=== PATIENT | female | born 1960 | race Caucasian/White ===

== ENCOUNTER → 2017-05-31 | Outpatient (CLI) | payer BC ==
[2017-05-31 08:39] LABS: Anion Gap 9 mmol/L; Blood Urea Nitrogen 16 mg/dL (7-17); Carbon Dioxide 28 mmol/L (22-30); Chloride 106 mmol/L (98-107); Glucose 100 mg/dL (74-99); Potassium 4.5 mmol/L (3.5-5.1); Sodium 143 mmol/L (137-145)
[2017-05-31 08:40] LABS: ALT 28 U/L (9-52); AST 24 U/L (14-36); Albumin 4.1 g/dL (3.5-5.0); Alkaline Phosphatase 51 U/L (38-126); Calcium 9.8 mg/dL (8.4-10.2); Cholesterol 242 mg/dL (<200); HDL Cholesterol 102 mg/dL (40-60); LDL Cholesterol,Calculated 130 mg/dL (0-99); Total Bilirubin 0.3 mg/dL (0.2-1.3); Total Protein 6.8 g/dL (6.3-8.2); Triglycerides 52 mg/dL (<150)
[2017-05-31 17:15] LABS: Hemoglobin A1C 5.6 % (4.0-6.0)
--- NOTE | 2017-06-01 11:38 | MM ---
Reason for exam: screening (asymptomatic). Last mammogram was performed 1 year and 5 months ago. History: Patient is postmenopausal. Taking estrogen for 3 months. Physical Findings: A clinical breast exam by your physician is recommended on an annual basis and results should be correlated with mammographic findings. MG Screening Mammo w CAD Bilateral CC and MLO view(s) were taken. Prior study comparison: January 13, 2016, bilateral MG screening mammo w CAD. June 30, 2014, bilateral MG screening mammo w CAD. There are scattered fibroglandular densities. No significant changes when compared with prior studies. ASSESSMENT: Negative, BI-RAD 1 RECOMMENDATION: Routine screening mammogram of both breasts in 1 year.
== END | disposition home or self-care (01) ==
LOC: RADMAMWWP 07:14
PROVIDERS: ATTEND Obstetrics & Gynecology
DX: Z12.31 Encounter for screening mammogram for malignant neoplasm of breast (principal); Z78.0 Asymptomatic menopausal state
CPT/HCPCS: 36415; 77067; 80053; 80061; 82306; 83036

== ENCOUNTER → 2018-08-23 | Outpatient (CLI) | payer BC ==
--- NOTE | 2018-08-27 09:37 | MM ---
Reason for exam: screening (asymptomatic). Last mammogram was performed 1 year and 3 months ago. History: Patient is postmenopausal. Taking estrogen for 3 months. Physical Findings: A clinical breast exam by your physician is recommended on an annual basis and results should be correlated with mammographic findings. MG Screening Mammo w CAD Bilateral CC and MLO view(s) were taken. Prior study comparison: May 31, 2017, bilateral MG screening mammo w CAD. January 13, 2016, bilateral MG screening mammo w CAD. Finding: There are stable fine grouped/clustered calcifications in the upper quadrant, middle position of the left breast on MLO view. No significant changes in finding since May 31, 2017 and January 13, 2016. ASSESSMENT: Benign, BI-RAD 2 RECOMMENDATION: Routine screening mammogram of both breasts in 1 year.
== END | disposition home or self-care (01) ==
LOC: RADMAMWWP 14:59
PROVIDERS: ATTEND Obstetrics & Gynecology
DX: Z12.31 Encounter for screening mammogram for malignant neoplasm of breast (principal)
CPT/HCPCS: 77067

== ENCOUNTER → 2018-09-02 | Outpatient (CLI) | payer BC ==
--- NOTE | 2018-09-02 08:08 | US ---
EXAMINATION TYPE: US thyroid st tissue head/neck DATE OF EXAM: 09/02/2018 COMPARISON: NONE CLINICAL HISTORY: 58-year-old female R22.1 Swelling , Mass, Lump In Neck. Doctor felt a lump within n arturo TECHNIQUE: Multiple sonographic images of the thyroid gland are obtained. FINDINGS: GLAND SIZE: Right Lobe: 4.5 x 1.4 x 2.6 cm Overall Parenchyma: heterogenous Left Lobe: 5.1 x 1.6 x 2.3 cm Overall Parenchyma: heterogeneous Isthmus Thickness: 0.2 cm NODULES RIGHT: # of nodules measured on right: 2 1. 0.8 X 0.5 x 0.7 cm hypoechoic solid nodule at the mid pole with well-defined margins. This nodu le is wider than tall and shows no intranodular vascularity. Prior size: no prior exam 2. 0.9 X 0.9 x 0.8 cm isoechoic solid nodule at the lower pole with poorly defined margins. This no dule is taller than wide and shows intranodular vascularity. Prior size: no prior exam LEFT: # of nodules measured on left: 1 1. 0.9 X 0.6 x 0.8 cm hypoechoic solid nodule at the lower pole with well-defined margins. This no dule is wider than tall and shows intranodular vascularity. Prior size: no prior ISTHMUS: # of nodules measured in the isthmus: 0 Bilateral neck scanned, no evidence of lymphadenopathy. IMPRESSION: Borderline thyromegaly. A couple solid nodules on the right measuring up to 9 mm and one solid nodule on the left measuring 9 mm. Follow-up could be considered.
== END | disposition home or self-care (01) ==
LOC: RADUSWWP 06:58
PROVIDERS: ATTEND Family Medicine
DX: E04.1 Nontoxic single thyroid nodule (principal)
CPT/HCPCS: 76536

== ENCOUNTER → 2018-09-04 | Outpatient (CLI) | payer BC ==
[2018-09-04 09:38] LABS: Basophils % (A) 0 %; Eosinophils # (A) 0.2 k/uL (0-0.7); Eosinophils % (A) 4 %; HCT 43.3 % (34.0-46.0); HGB 14.2 gm/dL (11.4-16.0); Lymphocytes # (A) 1.3 k/uL (1.0-4.8); Lymphocytes % (A) 29 %; MCH 30.9 pg (25.0-35.0); MCHC 32.7 g/dL (31.0-37.0); MCV 94.3 fL (80.0-100.0); Mean Platelet Volume 6.5; Monocytes # (A) 0.3 k/uL (0-1.0); Monocytes % (A) 6 %; Neutrophils # (A) 2.6 k/uL (1.3-7.7); Neutrophils % (A) 58 %; Platelet Count 301 k/uL (150-450); RBC 4.59 m/uL (3.80-5.40); RDW 12.8 % (11.5-15.5); WBC 4.5 k/uL (3.8-10.6)
[2018-09-04 09:49] LABS: ALT 28 U/L (9-52); AST 19 U/L (14-36); Albumin 4.2 g/dL (3.5-5.0); Alkaline Phosphatase 59 U/L (38-126); Anion Gap 5 mmol/L; Blood Urea Nitrogen 15 mg/dL (7-17); Calcium 9.5 mg/dL (8.4-10.2); Carbon Dioxide 27 mmol/L (22-30); Chloride 108 mmol/L (98-107); Cholesterol 218 mg/dL (<200); Glucose 90 mg/dL (74-99); HDL Cholesterol 88 mg/dL (40-60); LDL Cholesterol,Calculated 119 mg/dL (0-99); Potassium 4.3 mmol/L (3.5-5.1); Sodium 140 mmol/L (137-145); Total Bilirubin 0.5 mg/dL (0.2-1.3); Total Protein 6.9 g/dL (6.3-8.2); Triglycerides 54 mg/dL (<150); Uric Acid 4.6 mg/dL (3.7-7.4)
[2018-09-04 10:05] LABS: T4, Free (Free Thyroxine) 1.03 ng/dL (0.78-2.19)
--- NOTE | 2018-09-04 14:13 | BD ---
EXAMINATION TYPE: Axial Bone Density DATE OF EXAM: 09/04/2018 COMPARISON: NONE CLINICAL HISTORY: Height: 5 FT 5 1/4 IN Weight: 187 FRAX RISK QUESTIONS: RISK FACTORS HISTORY OF: Family History of Osteoporosis: MOTHER WAS ON FOSAMAX PT NOT SURE IF SHE WAS DIAGNOSED Postmenopausal woman: AGE 56 MEDICATIONS: Additional Medications: NONE Additional History: EXAM MEASUREMENTS: Bone mineral densitometry was performed using the Tapactive System. Bone mineral density as measured about the Lumbar spine is: ----- L1-L4(G/cm2): 1.268 T Score Values are as follows: ----- L2: 0.2 ----- L3: 0.7 ----- L4: 1.8 ----- L1-L4: 0.7 BASELINE Bone mineral density about the R hip (g/cm2): 1.003 Bone mineral density about the L hip (g/cm2): 0.966 T Score values are as follows: -----R Neck: -0.3 -----L Neck: -0.5 -----R Total: 0.6 -----L Total: 0.4 BASELINE IMPRESSION: No evidence for osteoporosis or osteopenia. NOTE: T-SCORE=SD OF THE YOUNG ADULT MEAN.
[2018-09-04 18:11] LABS: Vitamin D 25 Hydroxy 20.5 ng/mL (30.0-100.0)
[2018-09-04 19:04] LABS: Thyroid Peroxidase Antibodies <28.0 U/mL (0.0-60.0)
[2018-09-04 20:46] LABS: Hemoglobin A1C 5.7 % (4.0-6.0)
== END ==
LOC: RADBDWWP 07:10
PROVIDERS: ATTEND Family Medicine
DX: M89.9 Disorder of bone, unspecified (principal); N95.1 Menopausal and female climacteric states; E56.9 Vitamin deficiency, unspecified; M13.0 Polyarthritis, unspecified; R22.31 Localized swelling, mass and lump, right upper limb; Z13.228 Encounter for screening for other metabolic disorders
CPT/HCPCS: 36415; 77080; 80053; 80061; 82306; 82607; 83036; 84439; 84443; 84550; 85025; 86376

== ENCOUNTER → 2019-07-03 | Outpatient (CLI) | payer BC ==
--- NOTE | 2019-07-03 15:11 | XR ---
EXAMINATION TYPE: XR lumbar spine 2 or 3V DATE OF EXAM: 07/03/2019 COMPARISON: None HISTORY: M [age], low back pain TECHNIQUE: Three-view lumbar spine FINDINGS: There 5 lumbar-type vertebral bodies. Also are intact. Disc heights are preserved. Tiny hei ghts are preserved. There is side bending towards the left. Alignment is otherwise normal. IMPRESSION: 1. No acute osseous abnormality.
--- NOTE | 2019-07-03 15:13 | XR ---
EXAMINATION TYPE: XR pelvis AP view DATE OF EXAM: 07/03/2019 COMPARISON: None HISTORY: Low back pain TECHNIQUE: AP pelvis FINDINGS: Femoral heads articulate with the acetabulum. Symphysis pubis and sacroiliac joints are int act. No acute fractures are evident. Normal bowel gas is present. Phleboliths within the pelvis. IMPRESSION: 1. Unremarkable AP pelvis
== END | disposition home or self-care (01) ==
LOC: RAD 14:31
PROVIDERS: ATTEND Family Medicine
DX: M54.5 Low back pain (principal)
CPT/HCPCS: 72100; 72170

== ENCOUNTER → 2020-10-13 | Outpatient (CLI) | payer BC ==
--- NOTE | 2020-10-20 10:04 | MM ---
Reason for exam: screening (asymptomatic). Last mammogram was performed 2 years and 2 months ago. History: Patient is postmenopausal. Physical Findings: A clinical breast exam by your physician is recommended on an annual basis and results should be correlated with mammographic findings. MG Screening Mammo w CAD Bilateral CC and MLO view(s) were taken. Prior study comparison: August 23, 2018, bilateral MG screening mammo w CAD. May 31, 2017, bilateral MG screening mammo w CAD. There are scattered fibroglandular densities. No significant changes when compared with prior studies. ASSESSMENT: Benign, BI-RAD 2 RECOMMENDATION: Routine screening mammogram of both breasts in 1 year.
== END | disposition home or self-care (01) ==
LOC: RADMAMWWP 16:33
PROVIDERS: ATTEND Obstetrics & Gynecology
DX: Z12.31 Encounter for screening mammogram for malignant neoplasm of breast (principal); Z78.0 Asymptomatic menopausal state
CPT/HCPCS: 77067

== ENCOUNTER 2021-03-14 15:46 | Emergency (ER) | payer BC ==
[2021-03-14 16:18] VITALS: TEMP 98.1
[2021-03-14] MEDS ORDERED: SODIUM CHLORIDE 0.9% 500 ML 500 ML IV STA (16:42)
--- NOTE | 2021-03-14 16:49 | ED ---
General Adult HPI - General Chief complaint: Upper Respiratory Infection Stated complaint: High BP & chest cold Time Seen by Provider: 03/14/21 16:33 Source: patient, RN notes reviewed, old records reviewed Mode of arrival: ambulatory Limitations: no limitations - History of Present Illness Initial comments: Well-appearing 60-year-old female, alert and oriented 4, presents to the emergency room with complaints of cough and congestion with sinus pressure for the past 10 days. Patient states that she went to urgent care today and they told her of blood pressure was elevated. She has been using [id number] cough and congestion medications. She denies any medical history. She has not taken any medicines on a daily basis other than multivitamins. She is a nonsmoker. She denies any chest pain, or fevers and states that she was vaccinated in September against coronavirus. She states that she has been at the doctors in the past and they have told her that her blood pressures elevated at discharge is normal. -: days(s) (10) Location: head, chest Severity scale (1-10): 5 Quality: aching Consistency: constant Improves with: none Worsens with: none Associated Symptoms: cough, headaches, other (Congestion) Treatments Prior to Arrival: other ([id number] cough and congestion medications) - Related Data Previous Rx's Medication Instructions Recorded amLODIPine [Norvasc] 5 mg PO DAILY 14 Days #14 tab 03/14/21 Allergies Allergy/AdvReac Type Severity Reaction Status Date / Time No Known Allergies Allergy Verified 03/14/21 16:18 Review of Systems ROS Statement: Those systems with pertinent positive or pertinent negative responses have been documented in the HPI. ROS Other: All systems not noted in ROS Statement are negative. Past Medical History History of Any Multi-Drug Resistant Organisms: None Reported Past Surgical History: Section, Orthopedic Surgery Past Psychological History: No Psychological Hx Reported Smoking Status: Never smoker Past Alcohol Use History: Occasional Past Drug Use History: None Reported General Exam Limitations: no limitations General appearance: alert, in no apparent distress Head exam: Present: atraumatic, normocephalic, normal inspection Eye exam: Present: normal appearance, EOMI ENT exam: Present: normal exam, normal oropharynx, mucous membranes moist Neck exam: Present: normal inspection, full ROM. Absent: tenderness, meningismus, lymphadenopathy Respiratory exam: Present: normal lung sounds bilaterally. Absent: respiratory distress, wheezes, rales, rhonchi, stridor, chest wall tenderness, accessory muscle use, decreased breath sounds, prolonged expiratory Cardiovascular Exam: Present: regular rate, normal rhythm, normal heart sounds. Absent: systolic murmur, diastolic murmur, rubs, gallop, clicks, JVD GI/Abdominal exam: Present: soft, normal bowel sounds. Absent: distended, tenderness, guarding, rebound, rigid Back exam: Present: normal inspection, full ROM. Absent: tenderness, CVA tenderness (R), CVA tenderness (L), rash noted Neurological exam: Present: alert, oriented X3 Psychiatric exam: Present: normal affect, normal mood Skin exam: Present: warm, dry, intact, normal color. Absent: rash, cyanosis, diaphoretic, erythema, petechiae Course Vital Signs 03/14/21 03/14/21 03/14/21 16:13 18:16 18:47 Temperature 98.1 F Pulse Rate 62 65 Respiratory 20 18 18 Rate Blood Pressure 195/119 178/111 O2 Sat by Pulse 99 98 Oximetry 03/14/21 20:14 Temperature Pulse Rate 56 L Respiratory 18 Rate Blood Pressure 179/98 O2 Sat by Pulse 97 Oximetry EKG Findings - EKG Results: EKG: WNL (Ventricular rate of 72, HI interval 0.120, QRS of 0.84, QTC 0.466), sinus rhythm Medical Decision Making - Medical Decision Making There is no evidence of leukocytosis. Her d-dimer is negative at 0.18. EKG is normal sinus rhythm with no ST elevation or ectopy noted. Troponin is negative at 0.012. Chest x-ray shows no active pulmonary disease. Influenza A, B RSV and coronavirus negative. Patient was given Vasotec IV in the emergency room her blood pressure was 180/98 percent and the nurse. She was prescribed Norvasc at discharge and directed to follow up with her primary care doctor next week. She was also directed not to use medications for decongestion [id number], specifically for hypertensive patients like Coricidin high blood pressure. For any concerns she was directed to talk with the pharmacist direct. Case is discussed with Dr. Gaxiola who was agreeable to this plan of care. - Lab Data Result diagrams: 03/14/21 16:49 03/14/21 16:49 Lab Results 03/14/21 03/14/21 03/14/21 Range/Units 16:49 16:49 16:49 WBC 7.1 (3.8-10.6) k/uL RBC 4.67 (3.80-5.40) m/uL Hgb 14.4 (11.4-16.0) gm/dL Hct 43.9 (34.0-46.0) % MCV 94.0 (80.0-100.0) fL MCH 30.9 (25.0-35.0) pg MCHC 32.8 (31.0-37.0) g/dL RDW 12.3 (11.5-15.5) % Plt Count 347 (150-450) k/uL MPV 6.7 Neutrophils % 61 % Lymphocytes % 28 % Monocytes % 5 % Eosinophils % 4 % Basophils % 1 % Neutrophils # 4.3 (1.3-7.7) k/uL Lymphocytes # 2.0 (1.0-4.8) k/uL Monocytes # 0.3 (0-1.0) k/uL Eosinophils # 0.3 (0-0.7) k/uL Basophils # 0.0 (0-0.2) k/uL PT 9.9 (9.0-12.0) sec INR 0.9 (<1.2) APTT 26.5 (22.0-30.0) sec D-Dimer 0.18 (<0.60) mg/L FEU Sodium 135 L (137-145) mmol/L Potassium 4.5 (3.5-5.1) mmol/L Chloride 104 (98-107) mmol/L Carbon Dioxide 24 (22-30) mmol/L Anion Gap 7 mmol/L BUN 15 (7-17) mg/dL Creatinine 0.68 (0.52-1.04) mg/dL Est GFR (CKD-EPI)AfAm >90 (>60 ml/min/1.73 sqM) Est GFR (CKD-EPI)NonAf >90 (>60 ml/min/1.73 sqM) Glucose 97 (74-99) mg/dL Calcium 9.7 (8.4-10.2) mg/dL Magnesium 2.1 (1.6-2.3) mg/dL Total Bilirubin 0.2 (0.2-1.3) mg/dL AST 25 (14-36) U/L ALT 19 (4-34) U/L Alkaline Phosphatase 72 (38-126) U/L Troponin I (0.000-0.034) ng/mL Total Protein 7.2 (6.3-8.2) g/dL Albumin 4.3 (3.5-5.0) g/dL Urine Color Urine Appearance (Clear) Urine pH (5.0-8.0) Ur Specific [place] (1.001-1.035) Urine Protein (Negative) Urine Glucose (UA) (Negative) Urine Ketones (Negative) Urine Blood (Negative) Urine Nitrite (Negative) Urine Bilirubin (Negative) Urine Urobilinogen (<2.0) mg/dL Ur Leukocyte Esterase (Negative) Urine RBC (0-5) /hpf Urine WBC (0-5) /hpf Ur Squamous Epith Cells (0-4) /hpf Urine Bacteria (None) /hpf Influenza Type A RNA (Not Detectd) Influenza Type B (PCR) (Not Detectd) RSV (PCR) (Negative) SARS-CoV-2 (PCR) (Not Detectd) 03/14/21 03/14/21 03/14/21 Range/Units 16:49 16:49 17:09 WBC (3.8-10.6) k/uL RBC (3.80-5.40) m/uL Hgb (11.4-16.0) gm/dL Hct (34.0-46.0) % MCV (80.0-100.0) fL MCH (25.0-35.0) pg MCHC (31.0-37.0) g/dL RDW (11.5-15.5) % Plt Count (150-450) k/uL MPV Neutrophils % % Lymphocytes % % Monocytes % % Eosinophils % % Basophils % % Neutrophils # (1.3-7.7) k/uL Lymphocytes # (1.0-4.8) k/uL Monocytes # (0-1.0) k/uL Eosinophils # (0-0.7) k/uL Basophils # (0-0.2) k/uL PT (9.0-12.0) sec INR (<1.2) APTT (22.0-30.0) sec D-Dimer (<0.60) mg/L FEU Sodium (137-145) mmol/L Potassium (3.5-5.1) mmol/L Chloride (98-107) mmol/L Carbon Dioxide (22-30) mmol/L Anion Gap mmol/L BUN (7-17) mg/dL Creatinine (0.52-1.04) mg/dL Est GFR (CKD-EPI)AfAm (>60 ml/min/1.73 sqM) Est GFR (CKD-EPI)NonAf (>60 ml/min/1.73 sqM) Glucose (74-99) mg/dL Calcium (8.4-10.2) mg/dL Magnesium (1.6-2.3) mg/dL Total Bilirubin (0.2-1.3) mg/dL AST (14-36) U/L ALT (4-34) U/L Alkaline Phosphatase (38-126) U/L Troponin I <0.012 (0.000-0.034) ng/mL Total Protein (6.3-8.2) g/dL Albumin (3.5-5.0) g/dL Urine Color Colorless Urine Appearance Cloudy H (Clear) Urine pH 5.5 (5.0-8.0) Ur Specific [place] 1.006 (1.001-1.035) Urine Protein Negative (Negative) Urine Glucose (UA) Negative (Negative) Urine Ketones Negative (Negative) Urine Blood Negative (Negative) Urine Nitrite Negative (Negative) Urine Bilirubin Negative (Negative) Urine Urobilinogen <2.0 (<2.0) mg/dL Ur Leukocyte Esterase Moderate H (Negative) Urine RBC 2 (0-5) /hpf Urine WBC 7 H (0-5) /hpf Ur Squamous Epith Cells 12 H (0-4) /hpf Urine Bacteria Rare H (None) /hpf Influenza Type A RNA Not Detected (Not Detectd) Influenza Type B (PCR) Not Detected (Not Detectd) RSV (PCR) Negative (Negative) SARS-CoV-2 (PCR) Not Detected (Not Detectd) Disposition Clinical Impression: Congestion of upper respiratory tract, Hypertension Disposition: HOME SELF-CARE Instructions (If sedation given, give patient instructions): Hypertension (ED), Cold Symptoms (ED) Additional Instructions: Take Norvasc as prescribed and follow-up with your primary care doctor next week. Only use decongestants [id number] that are specifically for hyperte nsive patients example Coricidin HBP. You can discuss your options with the pharmacist. Return to the emergency room with any new or worsening symptoms. Prescriptions: amLODIPine [Norvasc] 5 mg PO DAILY 14 Days #14 tab Is patient prescribed a controlled substance at d/c from ED?: No Referrals: Katie Eldridge MD [Primary Care Provider] - 1-2 days
[2021-03-14 17:13] LABS: Basophils % (A) 1 %; Eosinophils # (A) 0.3 k/uL (0-0.7); Eosinophils % (A) 4 %; HCT 43.9 % (34.0-46.0); HGB 14.4 gm/dL (11.4-16.0); Lymphocytes % (A) 28 %; MCH 30.9 pg (25.0-35.0); MCHC 32.8 g/dL (31.0-37.0); Mean Platelet Volume 6.7; Monocytes # (A) 0.3 k/uL (0-1.0); Monocytes % (A) 5 %; Neutrophils # (A) 4.3 k/uL (1.3-7.7); Neutrophils % (A) 61 %; Platelet Count 347 k/uL (150-450); RBC 4.67 m/uL (3.80-5.40); RDW 12.3 % (11.5-15.5); WBC 7.1 k/uL (3.8-10.6)
[2021-03-14 17:19] LABS: Appearance,Urine Cloudy (Clear); Bacteria,Urine Rare /hpf; Bilirubin,Urine Negative (Negative); Blood,Urine Negative (Negative); Color,Urine Colorless; Glucose,Urine (UA) Negative (Negative); Ketones,Urine Negative (Negative); Leukocyte Esterase,Urine Moderate (Negative); Nitrite,Urine Negative (Negative); PH, Urine 5.5 (5.0-8.0); Protein,Urine Negative (Negative); RBC,Urine 2 /hpf (0-5); Specific Gravity,Urine 1.006 (1.001-1.035); Squamous Epithelial Cell,Urine 12 /hpf (0-4); Urobilinogen,Urine <2.0 mg/dL (<2.0); WBC,Urine 7 /hpf (0-5)
[2021-03-14 17:23] LABS: ALT 19 U/L (4-34); AST 25 U/L (14-36); African American GFR (CKD) >90 (>60 ml/min/1.73 sqM); Albumin 4.3 g/dL (3.5-5.0); Alkaline Phosphatase 72 U/L (38-126); Anion Gap 7 mmol/L; Blood Urea Nitrogen 15 mg/dL (7-17); Calcium 9.7 mg/dL (8.4-10.2); Carbon Dioxide 24 mmol/L (22-30); Chloride 104 mmol/L (98-107); Glucose 97 mg/dL (74-99); Magnesium 2.1 mg/dL (1.6-2.3); Non-African American GFR(CKD) >90 (>60 ml/min/1.73 sqM); Potassium 4.5 mmol/L (3.5-5.1); Sodium 135 mmol/L (137-145); Total Bilirubin 0.2 mg/dL (0.2-1.3); Total Protein 7.2 g/dL (6.3-8.2)
[2021-03-14 17:28] LABS: INR 0.9 (<1.2); Partial Thromboplastin Time 26.5 sec (22.0-30.0); Prothrombin Time 9.9 sec (9.0-12.0)
--- NOTE | 2021-03-14 17:56 | XR ---
EXAMINATION TYPE: XR chest 2V DATE OF EXAM: 03/14/2021 COMPARISON: NONE HISTORY: Short of breath TECHNIQUE: 2 views FINDINGS: Heart and mediastinum are normal. Lungs are clear. Diaphragm is normal. Bony thorax is inta ct. Thoracic aorta is atheromatous. IMPRESSION: No active cardiopulmonary disease. Normal heart.
[2021-03-14] MEDS ORDERED: ENALAPRILAT 1.25 MG/ML 1 ML VIAL IVP STA (19:11)
[2021-03-14 19:27] VITALS: RESP 18
[2021-03-14 20:23] VITALS: BP 179/98; PULSE 56
== END 2021-03-14 20:14 | disposition home or self-care (01) ==
LOC: EC 15:46
DX: J06.9 Acute upper respiratory infection, unspecified (principal); I10 Essential (primary) hypertension; Z20.822 Contact with and (suspected) exposure to COVID-19
CPT/HCPCS: 36415; 71046; 80053; 81001; 83735; 84484; 85025; 85379; 85610; 85730; 87502; 87634; 87635; 93005; 96361; 96374; 99284

== ENCOUNTER → 2021-06-10 | Outpatient (CLI) | payer BC | END | disposition home or self-care (01) | LOC: LABPAT 15:35 | PROVIDERS: ATTEND Surgery Plastic and Reconstructive Surgery | DX: Z20.822 Contact with and (suspected) exposure to COVID-19 (principal) | CPT/HCPCS: U0003; C9803; U0005 ==

== ENCOUNTER 2021-06-15 07:25 | Day surgery (SDC) | payer BC ==
[2021-06-13 11:04] VITALS: BMI 28.1
[~2021-06-15 07:25] MED LIST: LACTATED RINGERS 1,000 ML IV SCH; LIDOCAINE 1% (10MG/ML) FOR IV START INTRADERMA PRN
--- NOTE | 2021-06-15 07:44 | P.GSHP ---
History of Present Illness H&P Date: 06/15/21 CHIEF COMPLAINT: Colon screen HISTORY OF PRESENT ILLNESS: The patient is a 60-year-old female who presents for colon screen. Lower endoscopy was offered for further evaluation and management. PAST MEDICAL HISTORY: Please see list. PAST SURGICAL HISTORY: Please see list. MEDICATIONS: Please see list. ALLERGIES: Please see list. SOCIAL HISTORY: No illicit drug use FAMILY HISTORY: No reports of Crohn disease or ulcerative colitis. REVIEW OF ORGAN SYSTEMS: CONSTITUTIONAL: No reports of fevers or chills. PHYSICAL EXAM: VITAL SIGNS: Stable GENERAL: Well-developed pleasant in no acute distress. HEENT: No scleral icterus. Extraocular movements grossly intact. Moist buccal mucosa. NECK: Supple without lymphadenopathy. CHEST: Unlabored respirations. Equal bilateral excursions. CARDIOVASCULAR: Regular rate and rhythm. Distal 2+ pulses. ABDOMEN: Soft, nontender, nondistended. MUSCULOSKELETAL: No clubbing, cyanosis, or edema. ASSESSMENT: 1. Colon screen. PLAN: 1. Recommend proceeding with a lower endoscopy Past Medical History Past Medical History: No Reported History History of Any Multi-Drug Resistant Organisms: None Reported Past Surgical History: Section, Orthopedic Surgery Additional Past Surgical History / Comment(s): left bunionectomy, colonoscopy Past Anesthesia/Blood Transfusion Reactions: No Reported Reaction Past Psychological History: No Psychological Hx Reported Smoking Status: Former smoker Past Alcohol Use History: Occasional Additional Past Alcohol Use History / Comment(s): quit smoking 3 yrs. ago, smoked for 23 yrs. 1/2ppd Past Drug Use History: None Reported - Past Family History Mother Family Medical History: No Reported History Medications and Allergies Home Medications Medication Instructions Recorded Confirmed Type Cyanocobalamin [Vitamin B-12] 1,000 mcg PO DAILY 05/20/21 06/13/21 History Multivitamins, Thera [Multivitamin 1 tab PO DAILY 05/20/21 06/13/21 History (formulary)] Allergies Allergy/AdvReac Type Severity Reaction Status Date / Time No Known Allergies Allergy Verified 06/13/21 11:01
[2021-06-15 07:52] VITALS: RESP 16; TEMP 97.9
[2021-06-15] MEDS ORDERED: PROPOFOL 10 MG/ML 20 ML VIAL IV ONE (08:35)
--- NOTE | 2021-06-15 09:13 | P.PCN ---
Date of Procedure: 06/15/21 Description of Procedure: PREOPERATIVE DIAGNOSIS: Colonoscopy screening. POSTOPERATIVE DIAGNOSIS: Colonoscopy screening. OPERATION: Colonoscopy to the cecum, ileocecal valve and appendiceal orifice. SURGEON: Veronique Carlin MD. ANESTHESIA: MAC. INDICATIONS: The patient is a 60-year-old female who presents for colonoscopy screening. Benefits and risks were described and informed consent was obtained. DESCRIPTION OF PROCEDURE: The patient had undergone Sutab prep. The patient had been brought into the operating room and laid in the left lateral decubitus position. After adequate intravenous sedation, the rectum was examined with 2% lidocaine jelly. No external hemorrhoids were encountered. The rectal tone was within normal limits. No lesions were palpated in the rectal vault. A pediatric Olympus colonoscope was advanced until the cecum, ileocecal valve and appendiceal orifice were clear ly viewed. The prep was excellent. No scattered diverticulosis was encountered. No colonic polyps were found. No evidence of focal colitis was found. An area of stenosis and redundancy of the sigmoid colon was identified 20 to 30 cm from the anal verge. Retroflexion of the scope demonstrated grade 2 internal hemorrhoids without active bleeding or inflammation. The colon was desufflated. The patient had tolerated the procedure well. Withdrawal time was over 6 minutes. FINDINGS: Aronchick preparation quality scale 1 (1-5) Internal hemorrhoids, grade 2 No external prolapsed hemorrhoids. No arteriovenous malformations. No adenomatous polyps. No focal colitis. An area of stenosis and redundancy of the sigmoid colon was identified 20 to 30 cm from the anal verge requiring pediatric colonoscope RECOMMENDATIONS: Lower endoscopy in 10 years, 2031 or Cologaurd Plan - Discharge Summary Discharge Rx Participant: No New Discharge Prescriptions: Continue Multivitamins, Thera [Multivitamin (formulary)] 1 tab PO DAILY Cyanocobalamin [Vitamin B-12] 1,000 mcg PO DAILY Discharge Medication List Cyanocobalamin [Vitamin B-12] 1,000 mcg PO DAILY 05/20/21 [History] Multivitamins, Thera [Multivitamin (formulary)] 1 tab PO DAILY 05/20/21 [History] Follow up Appointment(s)/Referral(s): Veronique Carlin MD [STAFF PHYSICIAN] - As Needed Patient Instructions/Handouts: *Surgery [facility] - (Anesthesia) Endoscopy Discharge Instructions, Colonoscopy (DC) Activity/Diet/Wound Care/Special Instructions: Repeat colonoscopy in 10 years, 2031 or Cologaurd Discharge Disposition: HOME SELF-CARE
[2021-06-15 09:24] VITALS: BP 119/84; PULSE 64
== END 2021-06-15 10:14 | disposition home or self-care (01) ==
LOC: ORWHC2ENDO 07:25
PROVIDERS: ATTEND Surgery Plastic and Reconstructive Surgery
DX: Z12.11 Encounter for screening for malignant neoplasm of colon (principal); Q43.8 Other specified congenital malformations of intestine; K56.699 Other intestinal obstruction unspecified as to partial versus complete obstruction; K64.1 Second degree hemorrhoids; Z98.891 History of uterine scar from previous surgery; Z98.890 Other specified postprocedural states; Z87.891 Personal history of nicotine dependence
CPT/HCPCS: J2704; G0121

== ENCOUNTER → 2021-12-21 | Outpatient (CLI) | payer BC ==
--- NOTE | 2021-12-22 19:23 | MM ---
Reason for Exam: Screening (asymptomatic). Last mammogram was performed 1 year(s) and 2 month(s) ago. Patient History: Menarche at age 15. First Full-Term at age 18. Postmenopausal. Risk Values: Miriam 5 year model risk: 1.3%. NCI Lifetime model risk: 5.5%. Prior Study Comparison: 05/31/2017 Bilateral Screening Mammogram, [facility]. 08/23/2018 Bilateral Screening Mammogram, [facility]. 10/13/2020 Bilateral Screening Mammogram, [facility]. Tissue Density: There are scattered fibroglandular densities. Findings: Analyzed By CAD. There is no suspicious group of microcalcifications or new suspicious mass in either breast. Overall Assessment: Negative, BI-RAD 1 Management: Screening Mammogram of both breasts in 1 year. 1. Patient should continue monthly self breast exams. 2. A clinical breast exam by your physician is recommended on an annual basis. 3. This exam should not preclude additional follow-up of suspicious palpable abnormalities. Electronically signed and approved by: Reba Hirsch M.D. Radiologist
== END | disposition home or self-care (01) ==
LOC: RADMAMWWP 16:14
PROVIDERS: ATTEND Obstetrics & Gynecology
DX: Z12.31 Encounter for screening mammogram for malignant neoplasm of breast (principal); Z78.0 Asymptomatic menopausal state
CPT/HCPCS: 77067

== ENCOUNTER → 2023-03-09 | Outpatient (CLI) | payer BC ==
--- NOTE | 2023-03-12 08:19 | MM ---
Reason for Exam: Screening (asymptomatic). Last mammogram was performed 1 year(s) and 3 month(s) ago. Patient History: Menarche at age 15. First Full-Term at age 18. Postmenopausal. Patient has history of breast feeding. Risk Values: Miriam 5 year model risk: 1.3%. NCI Lifetime model risk: 5.3%. Prior Study Comparison: 01/13/2016 Bilateral Screening Mammogram, [facility]. 05/31/2017 Bilateral Screening Mammogram, [facility]. 08/23/2018 Bilateral Screening Mammogram, [facility]. 10/13/2020 Bilateral Screening Mammogram, [facility]. 12/21/2021 Bilateral MG screening mammo w CAD, [facility]. Tissue Density: There are scattered fibroglandular densities. Findings: Analyzed By CAD. Pattern appears symmetrical and stable. Benign calcification is within the left breast. No suspicious groups of microcalcifications, spiculated or lobular masses, architectural distortion or other secondary signs of malignancy are mammographically apparent. Overall Assessment: Benign, BI-RAD 2 Management: Screening Mammogram of both breasts in 1 year. A negative mammogram report should not preclude additional follow up of suspicious palpable abnormalities. Patient should continue monthly self breast exam. A clinical breast exam by your physician is recommended on an annual basis and results should be correlated with mammographic findings. Electronically signed and approved by: Jose Jung D.O. Radiologis
== END | disposition home or self-care (01) ==
LOC: RADMAMWWP 07:53
PROVIDERS: ATTEND Obstetrics & Gynecology
DX: Z12.31 Encounter for screening mammogram for malignant neoplasm of breast (principal); Z78.0 Asymptomatic menopausal state
CPT/HCPCS: 77067

== ENCOUNTER → 2023-07-12 | Outpatient (CLI) | payer BC ==
[2023-07-12 10:57] LABS: Basophils # (A) 0.03 X 10*3/uL (0.00-0.10); Basophils % (A) 0.5 %; Eosinophils # (A) 0.28 X 10*3/uL (0.04-0.35); Eosinophils % (A) 4.6 %; HCT 43.8 % (37.2-46.3); HGB 14.6 g/dL (12.0-15.0); Lymphocytes # (A) 1.56 X 10*3/uL (0.90-5.00); Lymphocytes % (A) 25.4 %; MCH 31.1 pg (27.0-32.0); MCHC 33.3 g/dL (32.0-37.0); MCV 93.4 FL (80.0-97.0); Mean Platelet Volume 9.1 FL (9.5-12.2); Monocytes # (A) 0.44 X 10*3/uL (0.20-1.00); Monocytes % (A) 7.2 %; NRBC Per 100 WBC 0 X 10*3/uL (0.00-0.01); Neutrophils # (A) 3.81 X 10*3/uL (1.80-7.70); Neutrophils % (A) 62.1 %; Platelet Count 310 X 10*3/uL (140-440); RBC 4.69 X 10*6/uL (4.10-5.20); RDW 13.1 % (11.5-14.5); WBC 6.13 X 10*3/uL (4.50-10.00)
[2023-07-12 11:27] LABS: ALT 12 U/L (8-44); AST 15 U/L (13-35); Albumin 4.3 g/dL (3.8-4.9); Albumin/Globulin Ratio 1.72 Ratio (1.60-3.17); Alkaline Phosphatase 63 U/L (41-126); BUN/Creat Ratio 19.75 Ratio (12.00-20.00); Blood Urea Nitrogen 15.8 mg/dL (9.0-27.0); Calcium 10.1 mg/dL (8.7-10.3); Carbon Dioxide 26.9 mmol/L (21.6-31.8); Chloride 105 mmol/L (96-109); Chol/HDL Ratio 2.73 Ratio; Globulin 2.5 g/dL (1.6-3.3); Glucose 101 mg/dL (70-110); LDL Cholesterol,Calculated 126.7 mg/dL (0.0-131.0); Potassium 4.9 mmol/L (3.5-5.5); Sodium 141 mmol/L (135-145); Total Bilirubin 0.3 mg/dL (0.3-1.2); Total Protein 6.8 g/dL (6.2-8.2); VLDL Calculation 13.26 mg/dL (5.00-40.00)
== END | disposition home or self-care (01) ==
LOC: LABWHC1 07:07
PROVIDERS: ATTEND Family Medicine
DX: I10 Essential (primary) hypertension (principal); E53.8 Deficiency of other specified B group vitamins; L28.0 Lichen simplex chronicus; E55.9 Vitamin D deficiency, unspecified; E78.5 Hyperlipidemia, unspecified; R73.03 Prediabetes
CPT/HCPCS: 36415; 80053; 80061; 82306; 82607; 83036; 84443; 85025

== ENCOUNTER → 2024-04-15 | Outpatient (CLI) | payer MEDICARE ==
--- NOTE | 2024-04-17 14:36 | MM ---
Reason for Exam: Screening (asymptomatic). Last mammogram was performed 1 year(s) and 1 month(s) ago. Patient History: Menarche at age 15. First Full-Term at age 18. Postmenopausal. Patient has history of breast feeding. Risk Values: Miriam 5 year model risk: 1.4%. NCI Lifetime model risk: 5.1%. Prior Study Comparison: 10/13/2020 Bilateral Screening Mammogram, [facility]. 12/21/2021 Bilateral MG screening mammo w CAD, [facility]. 03/09/2023 Bilateral MG screening mammo w CAD, [facility]. Tissue Density: There are scattered areas of fibroglandular density. Findings: Analyzed By CAD. Right breast: There is no suspicious group of microcalcifications or new suspicious mass. Left breast: There is no suspicious group of microcalcifications or new suspicious mass. Overall Assessment: Negative, BI-RAD 1 Management: Screening Mammogram of both breasts in [address] [facility] will attempt to contact patient to return for supplemental views and ultrasound if indicated. Patient should continue monthly self-breast exams. A clinical breast exam by your physician is recommended on an annual basis. This exam should not preclude additional follow-up of suspicious palpable abnormalities. Note on Miriam scores and lifetime risk: 1. A Miriam score greater than 3% is considered moderate risk. If this is the case, consider specialist referral to assess eligibility for a risk reducing agent. 2. If overall lifetime risk for the development of breast cancer is 20% or higher, the patient may qualify for future screening with alternating mammogram and breast MRI. [facility], , 04/15/2024 9:12 AM. Electronically signed and approved by: Kayden Arevalo DO
--- NOTE | 2024-04-19 00:19 | BD ---
EXAMINATION TYPE: Axial Bone Density DATE OF EXAM: 04/15/2024 CLINICAL HISTORY: 63 years old Female. ICD-10 CODE: M85.9 DISORDER OF BONE DENSITY , Additional Hist ory: Height: 65 Weight: 179.1 FRAX RISK QUESTIONS: Alcohol (3 or more units per day): no Family History (Parent hip fracture): no Glucocorticoids (More than 3mos): no (Ex: prednisone, prednisolone, methylprednisolone, dexamethasone, and hydrocortisone). History of Fracture in Adulthood: no Secondary Osteoporosis: 1. Type 1 Diabetes: no 2. Hyperthyroidism: no 3. Menopause before 45: no 4. Malnutrition: no 5. Chronic liver disease: no Rheumatoid Arthritis: no Current Tobacco Use: no RISK FACTORS HISTORY OF: Surgery to Spine/Hip(right/left)/Wrist (right/left): no EXAM MEASUREMENTS: Bone mineral densitometry was performed using the [email or web address] System. Bone mineral density as measured about the Lumbar spine is: ----- L1-L4(G/cm2): 1.330 T Score Values are as follows: ----- L1: 0.1 ----- L2: 1.0 ----- L3: 1.5 ----- L4: 2.0 ----- L1-L4: 1.3 Z Score Values are as follows: ----- L1: 1.1 ----- L2: 2.0 ----- L3: 2.5 ----- L4: 3.0 ----- L1-L4: 2.3 Bone mineral density has: increased 4.9 % since study of: 09.04.2018 Bone mineral density about the R hip (g/cm2): 1.066 Bone mineral density about the L hip (g/cm2): 1.067 T Score values are as follows: -----R Neck: -0.3 -----L Neck: -0.5 -----R Total: 0.5 -----L Total: 0.5 Z Score values are as follows: -----R Neck: 0.8 -----L Neck: 0.3 -----R Total: 1.3 -----L Total: 1.3 Bone mineral density has: decreased -0.3 % since study of: 09.04.2018 FRAX%s: The graph provided illustrates a 7.2% chance for a major osteoporotic fx and a 0.4% chance fo r the hips probability for fx in 10 years time. IMPRESSION: Normal (Values between +1 and -1 indicate normal bone mass). Consider repeating this study in 5 year s or sooner if there is some new clinical indication. NOTE: T-SCORE=SD OF THE YOUNG ADULT MEAN. [facility], , 04/19/2024 12:17 AM
== END | disposition home or self-care (01) ==
LOC: RADMAMWWP 08:40
PROVIDERS: ATTEND Family Medicine
DX: Z12.31 Encounter for screening mammogram for malignant neoplasm of breast (principal); R92.323 Mammographic fibroglandular density, bilateral breasts; M89.9 Disorder of bone, unspecified; Z78.0 Asymptomatic menopausal state
CPT/HCPCS: 77063; 77067; 77080

== ENCOUNTER → 2024-04-23 | Outpatient (CLI) | payer MEDICARE ==
[2024-04-23 10:31] LABS: Basophils # (A) 0.03 X 10*3/uL (0.00-0.10); Basophils % (A) 0.4 %; Eosinophils # (A) 0.36 X 10*3/uL (0.04-0.35); Eosinophils % (A) 5.3 %; HCT 39.8 % (37.2-46.3); HGB 13.3 g/dL (12.0-15.0); Lymphocytes # (A) 1.47 X 10*3/uL (0.90-5.00); Lymphocytes % (A) 21.5 %; MCH 31.3 pg (27.0-32.0); MCHC 33.4 g/dL (32.0-37.0); MCV 93.6 FL (80.0-97.0); Monocytes # (A) 0.43 X 10*3/uL (0.20-1.00); Monocytes % (A) 6.3 %; NRBC Per 100 WBC 0 X 10*3/uL (0.00-0.01); Neutrophils # (A) 4.52 X 10*3/uL (1.80-7.70); Neutrophils % (A) 66.2 %; Platelet Count 315 X 10*3/uL (140-440); RBC 4.25 X 10*6/uL (4.10-5.20); RDW 13.6 % (11.5-14.5); WBC 6.83 X 10*3/uL (4.50-10.00)
[2024-04-23 10:54] LABS: ALT 13 U/L (8-44); AST 16 U/L (13-35); Albumin 4.1 g/dL (3.8-4.9); Albumin/Globulin Ratio 1.78 Ratio (1.60-3.17); Alkaline Phosphatase 55 U/L (41-126); BUN/Creat Ratio 19.12 Ratio (12.00-20.00); Blood Urea Nitrogen 15.3 mg/dL (9.0-27.0); Calcium 9.4 mg/dL (8.7-10.3); Carbon Dioxide 24.6 mmol/L (21.6-31.8); Chloride 106 mmol/L (96-109); Globulin 2.3 g/dL (1.6-3.3); Glucose 102 mg/dL (70-110); LDL Cholesterol,Calculated 143.3 mg/dL (0.0-131.0); Potassium 4.2 mmol/L (3.5-5.5); Sodium 140 mmol/L (135-145); Total Bilirubin 0.4 mg/dL (0.3-1.2); Total Protein 6.4 g/dL (6.2-8.2); VLDL Calculation 14.72 mg/dL (5.00-40.00)
== END | disposition home or self-care (01) ==
LOC: LABWHC1 07:03
PROVIDERS: ATTEND Family Medicine
DX: Z00.00 Encounter for general adult medical examination without abnormal findings (principal); I10 Essential (primary) hypertension; E55.9 Vitamin D deficiency, unspecified; M85.9 Disorder of bone density and structure, unspecified; R73.03 Prediabetes; R73.9 Hyperglycemia, unspecified
CPT/HCPCS: 36415; 80053; 80061; 83036; 84443; 85025

== ENCOUNTER → 2024-07-28 | Outpatient (CLI) | payer MEDICARE ==
[2024-07-28 20:48] LABS: T4, Free (Free Thyroxine) 1.2 ng/dL (0.80-1.80)
== END | disposition home or self-care (01) ==
LOC: LABWHC1 14:01
PROVIDERS: ATTEND Family Medicine
DX: I12.9 Hypertensive chronic kidney disease with stage 1 through stage 4 chronic kidney disease, or unspecified chronic kidney disease (principal); N18.2 Chronic kidney disease, stage 2 (mild); L65.0 Telogen effluvium; M85.9 Disorder of bone density and structure, unspecified; R73.03 Prediabetes
CPT/HCPCS: 36415; 82626; 84403; 84439; 84443; 84480